=== PATIENT | male | born 1930 | race Caucasian/White ===

== ENCOUNTER → 2017-03-13 | Outpatient (CLI) | payer OTHER ==
[~2017-03-13] MED LIST: AMOXICILLIN 50500 M1 PO; ASPIR 8181 MG PO; ATORVASTATIN CA40 MG PO; BRILINTA90 MG PO; CARDIZEM CD120 MG PO; COUMADIN 5 MG TA5 M1 PO; IMDUR 30 MG TAB30 M1 PO; METOPROLOL SUCC50 MG PO; NITRO-BID30 GM TOP; PANTOPRAZOLE SO40 M1 PO; RANEXA500 MG PO
== END ==
LOC: PUL 09:29
DX: R06.00 Dyspnea, unspecified (principal)

== ENCOUNTER → 2018-01-08 | Outpatient (CLI) | payer OTHER ==
[2018-01-08 10:25] LABS: ALBUMIN 3.6 g/dL (3.4-5.0); CALCIUM 9.2 mg/dL (8.5-10.1); CREATININE 1.4 mg/dL (0.7-1.3); POTASSIUM 4.4 mmol/L (3.5-5.1); TOTAL BILIRUBIN 0.7 mg/dL (<0.1-1.0); TOTAL PROTEIN 6.4 g/dL (6.4-8.2)
== END ==
LOC: CAT 09:34
PROVIDERS: Family Medicine
DX: N40.0 Benign prostatic hyperplasia without lower urinary tract symptoms (principal); N20.0 Calculus of kidney; I70.0 Atherosclerosis of aorta; I21.3 ST elevation (STEMI) myocardial infarction of unspecified site; Z90.49 Acquired absence of other specified parts of digestive tract